=== PATIENT | male | born 1995 | race Two or more races ===

== ENCOUNTER 2017-03-04 16:59 | Inpatient (IN) | payer BC ==
[~2017-03-04] VITALS: Ht 162.6 cm; Wt 54.2 kg
[2017-03-04] MEDS ORDERED: FAMOTIDINE 20 MG/2 ML IVP ONE (17:30)
[2017-03-04] MEDS ORDERED: SODIUM CHLORIDE FLUSH 10ML SYR IVF ONE ×2 (17:30→21:00)
[2017-03-04] MEDS ORDERED: SODIUM CHLORIDE 0.9% 1,000ML IVBOLUS ONE (17:30)
[2017-03-04] MEDS ORDERED: ONDANSETRON 2MG/ML, 2ML IVPush ONE (17:30)
[2017-03-04] MEDS ORDERED: ONDANSETRON 2MG/ML, 2ML ONE (17:36)
[2017-03-04] MEDS ORDERED: MORPHINE SULFATE 4 MG/ML, 1ML ONE ×2 (17:36→18:10)
[2017-03-04] MEDS ORDERED: FAMOTIDINE 20 MG/2 ML ONE (17:37)
[2017-03-04] MEDS: MORPHINE SULFATE 4 MG/ML, 1ML IVPush PRN ×3 (17:41→21:05)
[2017-03-04] MEDS ORDERED: PROM12.55 PO (17:50)
[2017-03-04] MEDS ORDERED: ONDA-40 PO (17:51)
[2017-03-04] MEDS ORDERED: DICY20TA3 PO (17:52)
[2017-03-04 18:05] LABS: ASPARTATE AMINO TRANSFERASE 35 U/L (15-37); BLOOD UREA NITROGEN 10 mg/dL (7-18)
[2017-03-04] MEDS ORDERED: OMNIPAQUE 350 MG/ML, 100ML BOTTLE ONE (18:37)
[2017-03-04] MEDS ORDERED: METOCLOPRAMIDE 5 MG/ML, 2ML IVPush ONE (19:00)
[2017-03-04] MEDS ORDERED: SODIUM CHLORIDE 0.9% 1,000 ML IV ONE (19:34)
[2017-03-04] MEDS ORDERED: TEMAZEPAM 15 MG CAPSULE PO PRN (20:30)
[2017-03-04] MEDS ORDERED: PROMETHAZINE 25 MG/ML, 1ML IM PRN (20:30)
[2017-03-04] MEDS ORDERED: METOCLOPRAMIDE 5 MG/ML, 2ML IVPush PRN (20:30)
[2017-03-04] MEDS: ONDANSETRON 2MG/ML, 2ML IVPush PRN (20:44)
[2017-03-04 22:01] VITALS: BP 124/68
[2017-03-04] MEDS: D5%-0.45% NACL 1,000 ML IV SCH (22:18)
[2017-03-04] MEDS: ENOXAPARIN 40 MG/0.4 ML SQ SCH (22:22)
[2017-03-05 03:55] VITALS: BP 95/56
[2017-03-05] MEDS: MORPHINE SULFATE 4 MG/ML, 1ML IVPush PRN (05:29)
[2017-03-05] MEDS: D5%-0.45% NACL 1,000 ML IV SCH ×2 (06:25→19:49)
[2017-03-05 06:27] LABS: BLOOD UREA NITROGEN 10 mg/dL (7-18)
[2017-03-05 07:49] VITALS: BP 91/51
[2017-03-05] MEDS: OXYcodone IR 5MG TABLET PO PRN ×3 (09:39→19:49)
[2017-03-05] MEDS: ONDANSETRON 2MG/ML, 2ML IVPush PRN (09:39)
[2017-03-05] MEDS ORDERED: MORPHINE SULFATE 4 MG/ML, 1ML IVPush PRN (11:00)
[2017-03-05 12:47] VITALS: BP 100/55
[2017-03-05] MEDS: ONDANSETRON 2MG/ML, 2ML IVPush SCH ×3 (13:49→22:00)
[2017-03-05] MEDS: METOCLOPRAMIDE 5 MG/ML, 2ML IVPush SCH ×2 (14:30→19:49)
[2017-03-05 19:49] VITALS: BP 133/83
[2017-03-05 19:50] VITALS: BP 103/62
[2017-03-05] MEDS ORDERED: LORazepam 2 MG/ML, 1ML ONE (20:14)
[2017-03-05] MEDS: LORazepam 2 MG/ML, 1ML IVPush PRN (20:16)
[2017-03-05] MEDS ORDERED: LORazepam 2 MG/ML, 1ML IVPush ONE (21:00)
[2017-03-05] MEDS: ENOXAPARIN 40 MG/0.4 ML SQ SCH (22:22)
[2017-03-06 01:18] VITALS: BP 94/51
[2017-03-06] MEDS: METOCLOPRAMIDE 5 MG/ML, 2ML IVPush SCH ×2 (01:48→08:30)
[2017-03-06] MEDS: ONDANSETRON 2MG/ML, 2ML IVPush SCH ×3 (01:48→10:00)
[2017-03-06] MEDS: D5%-0.45% NACL 1,000 ML IV SCH (04:48)
[2017-03-06 08:00] VITALS: BP 100/60
[2017-03-06] MEDS: LORazepam 2 MG/ML, 1ML IVPush PRN (11:07)
[2017-03-06] MEDS ORDERED: OXYC1TAB7 PO (12:22)
[2017-03-06] MEDS ORDERED: DIPHENHYDRAMINE 25 MG CAPSULE PO ONE (12:30)
== END 2017-03-06 15:25 | disposition home or self-care (01) | DRG 392 ==
LOC: ED 18:47 → EDIP 20:33 → 3NE 20:37 → DCLOUNGE 03-06 14:50
PROVIDERS: ADMIT Internal Medicine
DX: R10.9 Unspecified abdominal pain (principal); G43.D0 Abdominal migraine, not intractable; M41.9 Scoliosis, unspecified; R73.9 Hyperglycemia, unspecified; F12.90 Cannabis use, unspecified, uncomplicated; E86.0 Dehydration; E83.52 Hypercalcemia; Z98.1 Arthrodesis status; Z80.9 Family history of malignant neoplasm, unspecified; Z83.3 Family history of diabetes mellitus
CPT/HCPCS: 36415; 74177; 76700; 80048; 80053; 83690; 85025; 86677; 96374; 96375; J1650; J2405; Q9967; J2060; J2765; J7030; Q0163; S0028